=== PATIENT | female | born 1955 | race African-American/Black ===

== ENCOUNTER 2018-12-12 10:12 | Inpatient (IN) | payer OTHER ==
[2018-12-12 10:55] VITALS: BMI 25.6
--- NOTE | 2018-12-12 12:17 | HP ---
CIWA Score - Admission Criteria [facility] Guidelines: Admission for Medically Managed Detox: Requires at least one of the followin. CIWA greater than 12 2. Seizures within the past 24 hours 3. Delirium tremens within the past 24 hours 4. Hallucinations within the past 24 hours 5. Acute intervention needed for co occurring medical disorder 6. Acute intervention needed for co occurring psychiatric disorder 7. Severe withdrawal that cannot be handled at a lower level of care (continued vomiting, continued diarrhea, abnormal vital signs) requiring intravenous medication and/or fluids 8. Admission ROS [facility] - HPI Chief Complaint: I am here for rehab from cocaine,marijuana and alcohol Allergies/Adverse Reactions: Allergies Allergy/AdvReac Type Severity Reaction Status Date / Time No Known Allergies Allergy Verified 12/12/18 10:42 History of Present Illness: this 63 years old female with alcohol,cocaine and marijuana dependence seeking help in rehab,last rehab 15 years ago in [place], history of ovarian cancer s/p surgery and radiation therapy in 2018 [facility] weight loss in remission pain in left lower molar arthritis both knee no seizure,no syncope history of depression nicotine dependence 2 cigarette/nicotine patch 7 ngs/day plan for outpatient program NA meeting after detox history of hypertension,hypercholesterolemia,asthma history of type 2 dm on diet control Exam Limitations: No Limitations - Ebola screening Have you traveled outside of the country in the last 21 days: No (N) Have you had contact with anyone from an Ebola affected area: No Do you have a fever: No - Review of Systems Constitutional: No Symptoms Reported EENT: reports: No Symptoms Reported, Other (pain in tooth left loer) Respiratory: reports: Other (asthma) Cardiac: reports: No Symptoms Reported GI: reports: No Symptoms Reported : reports: Frequency Musculoskeletal: reports: No Symptoms Reported Integumentary: reports: No Symptoms Reported Neuro: reports: No Symptoms reported Endocrine: reports: Other (type 2 dm) Hematology: reports: Other (anemia) Psychiatric: reports: No Sypmtoms Reported, Judgement Intact, Mood/Affect Appropiate, Orientated x3 Other Systems: Reviewed and Negative (history of ovarian cancer s/p surgery and radiation therapy) Patient History - Patient Medical History Hx Anemia: Yes (on iron) Hx Asthma: Yes (on albuterol inhaler) Hx Chronic Obstructive Pulmonary Disease (COPD): No Hx Cancer: Yes (ovarian cancer s/p surgery and radiation therapy) Hx Cardiac Disorders: No Hx Congestive Heart Failure: No Hx Hypertension: Yes (on med) Hx Hypercholesterolemia: Yes (on med) Hx Pacemaker: No HX Cerebrovascular Accident: No Hx Seizures: No Hx Dementia: No Hx Diabetes: Yes (type 2 on diet control) Hx Gastrointestinal Disorders: No (constipation) Hx Liver Disease: No Hx Genitourinary Disorders: No Hx Sexually Transmitted Disorders: No Hx Renal Disease (ESRD): No Hx Thyroid Disease: No Hx Human Immunodeficiency Virus (HIV): No (last 05/10 negative) Hx Hepatitis C: No Hx Depression: Yes (insomnia) Hx Suicide Attempt: No Hx Bipolar Disorder: No Hx Schizophrenia: No Other Medical History: no suicidal,no homicidal - Patient Surgical History Past Surgical History: Yes Other Surgical History: surgery for ovarian cance in 2018 - PPD History Previous Implant?: Yes Documented Results: Negative w/o proof Implanted On Prior R Admission?: No PPD to be Administered?: Yes - Reproductive History Patient is a Female of Child Bearing Age (11 -55 yrs old): No Patient : No - Smoking Cessation Smoking history: Current every day smoker Have you smoked in the past 12 months: Yes Aproximately how many cigarettes per day: 3 Cigars Per Day: 0 Hx Chewing Tobacco Use: No Initiated information on smoking cessation: Yes 'Breaking Loose' booklet given: 12/12/18 - Substance & Tx. History Hx Alcohol Use: Yes Hx Substance Use: Yes Substance Use Type: Alcohol, Cocaine, Marijuana Hx Substance Use Treatment: Yes (rehab 15 years ago in [place]) - Substances abused Crack Substance route: Smoking Frequency: 3-6 times per week Amount used: $60 Age of first use: 38 Date of last use: 12/11/18 Marijuana/Hashish Substance route: Smoking Frequency: 3-6 times per week Amount used: 10$ Age of first use: 16 Date of last use: 12/10/18 Alcohol Substance route: Oral Frequency: 1-2 times per week Amount used: 1/2 pint of bacardi Age of first use: 24 Date of last use: 12/09/18 Family Disease History - Family Disease History Family Disease History: Diabetes: Father (alcohol and cocaine), Other: Father Admission Physical Exam [facility] - Vital Signs Vital Signs: Vital Signs - 24 hr 12/12/18 12/12/18 10:49 11:44 Temperature 96.7 F L 96.7 F L Pulse Rate 69 69 Respiratory 18 18 Rate Blood Pressure 142/92 142/92 - Physical General Appearance: Yes: Within Normal Limits HEENTM: Yes: Normal ENT Inspection, Normocephalic, Normal Voice, MARK, Pharynx Normal, Other (pain in left lower molar) Respiratory: Yes: Lungs Clear, Normal Breath Sounds, No Respiratory Distress Neck: Yes: Within Normal Limits, Supple, Trachea in good position, Other (rash of right side of neck) Breast: Yes: Breast Exam Deferred Cardiology: Yes: Within Normal Limits, Regular Rhythm, Regular Rate, S1, S2 Abdominal: Yes: Within Normal Limits, Normal Bowel Sounds, Non Tender, Soft, Surgical Scar Genitourinary: Yes: Within Normal Limits Back: Yes: Within Normal Limits Musculoskeletal: Yes: Within Normal Limits, Other (scar left leg) Extremities: Yes: Within Normal Limits Neurological: Yes: research dietitian II-XII NML intact, Fully Oriented, Alert, Motor Strength 5/5 Integumentary: Yes: Within Normal Limits Lymphatic: Yes: Within Normal Limits - Diagnostic (1) Alcohol dependence Current Visit: Yes Status: Chronic (2) Cocaine dependence Current Visit: Yes Status: Chronic (3) Cannabis dependence Current Visit: Yes Status: Chronic (4) History of ovarian cancer Current Visit: Yes Status: Acute (5) Anemia Current Visit: Yes Status: Acute (6) Insomnia Current Visit: Yes Status: Chronic (7) Anxiety and depression Current Visit: Yes Status: Acute (8) Weight loss Current Visit: Yes Status: Acute (9) Asthma Current Visit: Yes Status: Acute (10) Hypertension Current Visit: Yes Status: Acute (11) Hypercholesterolemia Current Visit: Yes Status: Acute (12) DM2 (diabetes mellitus, type 2) Current Visit: Yes Status: Acute Cleared for Admission [facility] - Detox or Rehab Claeared for Rehab Admission: Yes Breathalyzer - Breathalyzer Breathalyzer: 0 Urine Drug Screen - Test Device Lot number: [id number] Expiration date: 09/19/20 - Control Is test valid?: Yes - Results Drug screen NEGATIVE: No Urine drug screen results: THC-Marijuana, BARI-Cocaine Inpatient Rehab Admission - Rehab Decision to Admit Inpatient rehab admission?: Yes - Initial Determination Are CD services needed?: Yes Free of communicable disease: Yes Not in need of hospitalization: Yes - Rehab Admission Criteria Previous failed treatment: Yes Poor recovery environment: Yes Comorbidities: Yes Lacks judgement: No Patient is meeting Inpatient Rehab admission criteria:: Yes
[2018-12-12] MEDS ORDERED: P-EPHED 60MG/TRIPROLIDI 2.5MG TABLET PO PRN (12:42)
[2018-12-12] MEDS ORDERED: guaiFENesin 200 MG/10 ML 10 ML UNIT-DOSE CUPS PO PRN (12:42)
[2018-12-12] MEDS ORDERED: ACETAMINOPHEN 325 MG TABLET (FP) PO PRN (12:42)
[2018-12-12] MEDS ORDERED: MENTHOL/PHENOL 1 EACH UD MM PRN (12:42)
[2018-12-12] MEDS ORDERED: LOPERAMIDE HCL 2 MG CAPSULE PO PRN (12:42)
[2018-12-12] MEDS ORDERED: MAG HYDROX/AL HYDROX/SIMETH 30 ML UNIT-DOSE CUP PO PRN (12:42)
[2018-12-12] MEDS ORDERED: MAGNESIUM CITRATE 300 ML BOTTLE PO PRN (12:42)
[2018-12-12] MEDS ORDERED: MAGNESIUM HYDROX 2400MG/30ML ORAL SUSPENSION 30 ML CUP PO PRN (12:42)
[2018-12-12] MEDS ORDERED: ALBUTEROL SO4 8 GM HFA INHALER IH PRN (12:45)
[2018-12-12] MEDS: IBUPROFEN 400 MG TABLET (FP) PO PRN ×2 (14:14→19:24)
[2018-12-12] MEDS: GABAPENTIN 300 MG CAPSULE (FP) PO SCH ×2 (14:14→21:19)
[2018-12-12] MEDS: NICOTINE 7 MG/24 HOURS TOPICAL PATCH TD SCH (14:14)
[2018-12-12 14:50] LABS: HEMATOCRIT 34.7 % (32.4-45.2); HEMOGLOBIN 11.4 GM/dL (10.7-15.3); MCHC 32.8 g/dl (32.0-36.0); MEAN CELL VOLUME 88.2 fl (80-96); MEAN PLT VOLUME 9.4 fl (7.5-11.1); PLATELET COUNT 243 K/MM3 (134-434); RBC 3.93 M/mm3 (3.60-5.2); RDW 14.4 % (11.6-15.6); WHITE BLOOD COUNT 5.4 K/mm3 (4.0-10.0)
[2018-12-12 14:59] LABS: ALBUMIN 4.4 g/dl (3.4-5.0); BILIRUBIN,TOTAL 1.6 mg/dL (0.2-1); BLOOD UREA NITROGEN 6.7 mg/dL (7-18); CALCIUM 9.4 mg/dL (8.5-10.1); CREATININE 0.9 mg/dL (0.55-1.3); TOT PROT 7.8 g/dl (6.4-8.2)
--- NOTE | 2018-12-12 16:49 | CONSULT ---
[facility] Psychiatric Consult - Data Date of interview: 12/12/18 Admission source: [facility] Identifying data: First visit to [facility] and direct admission to [address] for this 63 y/o AA female self-referred for rehabilitative care to address substance use disorder (alcohol, cannabis, cocaine/crack, nicotine) co- morbid with MDD. Patient is , a mother of four, domiciled (lives with spouse), unemployed, disabled and supported on [facility] benefits. Substance Abuse History: Confirmed by patient. Discussed in session. Details in current [facility] report as follows : Smoking history: Current every day smoker. Have you smoked in the past 12 months: Yes. Aproximately how many cigarettes per day: 3. Cigars Per Day: 0. Hx Chewing Tobacco Use: No. Initiated information on smoking cessation: Yes. 'Breaking Loose' booklet given: . - Substance & Tx. History. Hx Alcohol Use: Yes. Hx Substance Use: Yes. Substance Use Type: Alcohol, Cocaine, Marijuana. Hx Substance Use Treatment: Yes (rehab 15 years ago in [place]). - Substances abused. Crack. Substance route: Smoking. Frequency: 3-6 times per week. Amount used: $60. Age of first use: 38. Date of last use: 12/11/18. Marijuana/Hashish. Substance route: Smoking. Frequency: 3-6 times per week. Amount used: 10$. Age of first use: 16. Date of last use: 12/10/18. Alcohol. Substance route : Oral. Frequency: 1-2 times per week. Amount used: 1/2 pint of bacardi. Age of first use: 24. Date of last use: 12/09/18 Medical History: Medical profile is remarkable for bronchial asthma, anemia, hypertension, dyslipidemia, past history of diabetes mellitus + ovarian cancer ( interventions : surgery and radiation therapy in 2018). Psychiatric History: Patient endorses a history of one psychiatric hospitalization at [facility] ([place]). Diagnosed with MDD. Ms Millan is currently managed with abilify 10 mg/day (stopped taking fluoxetine). She sees a psychiatrist, Dr Gold, at [facility] in the [place]. Patient reports a remote history of suicide attempt via overdose with medications (years ago). Physical/Sexual Abuse/Trauma History: Patient denies. Additional Comment: Urine drug screen results: THC-Marijuana, BARI-Cocaine. Noted. Mental Status Exam - Mental Status Exam Alert and Oriented to: Time, Place, Person Cognitive Function: Good Patient Appearance: Well Groomed Mood: Hopeful Affect: Appropriate, Normal Range Patient Behavior: Appropriate (pleasant), Cooperative Speech Pattern: Clear, Appropriate Voice Loudness: Normal Thought Process: Intact, Goal Oriented Thought Disorder: Not Present Hallucinations: Denies Suicidal Ideation: Denies Homicidal Ideation: Denies Insight/Judgement: Good Sleep: Poorly, Difficulty falling asleep Appetite: Poor, Weight loss Gait/Station: Normal Psychiatric Findings - Problem List ([place] 1, 2,3) (1) Alcohol dependence Current Visit: Yes Status: Chronic (2) Cannabis dependence Current Visit: Yes Status: Chronic (3) Cocaine dependence Current Visit: Yes Status: Chronic (4) History of depression Current Visit: Yes Status: Chronic (5) Insomnia Current Visit: Yes Status: Chronic - Initial Treatment Plan Initial Treatment Plan: Psychoeducation. Sleep hygiene. Support. Groups. Motivational counseling. Abilify 10 mg po daily. Ordered. Side effects/benefits discussed with the patient. Insomnia is addressed with melatonin at bedtime. Verbal consent given to MD. Betts.
[2018-12-12] MEDS: HYDROCORTISONE 1% TOPICAL CREAM 30 GM TUBE TP SCH (21:19)
[2018-12-12] MEDS: ATORVASTATIN CA 40 MG TABLET (FP) PO SCH (21:19)
[2018-12-12] MEDS: THIAMINE HCL 100 MG TABLET (FP) PO SCH (21:20)
[2018-12-12] MEDS: hydrOXYzine PAMOATE 25 MG CAPSULE (FP) PO PRN (21:22)
[2018-12-12] MEDS: MELATONIN 5 MG TABLETS PO PRN (21:22)
[2018-12-12] MEDS: BUDESONIDE/FORMETEROL FUMARATE 160/4.5 mcg INHALER IH SCH (22:13)
[2018-12-13] MEDS: GABAPENTIN 300 MG CAPSULE (FP) PO SCH ×3 (06:24→21:04)
[2018-12-13] MEDS: IBUPROFEN 400 MG TABLET (FP) PO PRN ×2 (06:25→17:05)
[2018-12-13] MEDS: FERROUS SO4 325 MG TABLET (FP) PO SCH (07:04)
[2018-12-13] MEDS ORDERED: PT OWN MED DRAWER 7, Y5N ONE ×2 (08:27→21:03)
[2018-12-13] MEDS: HYDROCORTISONE 1% TOPICAL CREAM 30 GM TUBE TP SCH ×2 (10:12→21:04)
[2018-12-13] MEDS: ARIPiprazole 10 MG TABLET PO SCH (10:12)
[2018-12-13] MEDS: NICOTINE 7 MG/24 HOURS TOPICAL PATCH TD SCH (10:12)
[2018-12-13] MEDS: PRENATAL VITAMINS W/ FOLIC ACID TABLET (FP) PO SCH (10:13)
[2018-12-13] MEDS: CHOLECALCIFEROL (VIT D3) 1,000 UNIT (25 MCG) TABLET PO SCH (10:13)
[2018-12-13] MEDS: BUDESONIDE/FORMETEROL FUMARATE 160/4.5 mcg INHALER IH SCH ×2 (10:14→21:03)
[2018-12-13 18:59] LABS: EPI CELLS 20.7 /HPF (0-5/HPF); HYALINE CASTS 48 /lpf (0-8); PH,URINE 5.5 (5.0-8.0); URINE APPEARANCE TURBID; URINE BILIRUBIN NEGATIVE (NEGATIVE); URINE COLOR YELLOW; URINE GLUCOSE (UA) NEGATIVE (NEGATIVE); URINE KETONE NEGATIVE (NEGATIVE); URINE LEUK ESTERASE 2+ (NEGATIVE); URINE NITRITE POSITIVE (NEGATIVE); URINE PROTEIN TRACE (NEGATIVE); URINE RBC 5 /hpf (0-4); URINE UROBILINOGEN 0.2 mg/dL (0.2-1.0); URINE WBC 71 /hpf (0-5)
[2018-12-13] MEDS: THIAMINE HCL 100 MG TABLET (FP) PO SCH (21:03)
[2018-12-13] MEDS: ATORVASTATIN CA 40 MG TABLET (FP) PO SCH (21:04)
[2018-12-13] MEDS: MELATONIN 5 MG TABLETS PO PRN (21:04)
[2018-12-13] MEDS: hydrOXYzine PAMOATE 25 MG CAPSULE (FP) PO PRN (21:05)
[2018-12-14] MEDS: GABAPENTIN 300 MG CAPSULE (FP) PO SCH ×3 (06:43→21:43)
[2018-12-14] MEDS: IBUPROFEN 400 MG TABLET (FP) PO PRN (06:44)
[2018-12-14] MEDS: FERROUS SO4 325 MG TABLET (FP) PO SCH (07:02)
[2018-12-14] MEDS ORDERED: PT OWN MED DRAWER 7, Y5N ONE ×2 (08:46→21:45)
[2018-12-14] MEDS: BUDESONIDE/FORMETEROL FUMARATE 160/4.5 mcg INHALER IH SCH ×2 (10:04→21:44)
[2018-12-14] MEDS: HYDROCORTISONE 1% TOPICAL CREAM 30 GM TUBE TP SCH ×2 (10:04→21:43)
[2018-12-14] MEDS: NICOTINE 7 MG/24 HOURS TOPICAL PATCH TD SCH (10:04)
[2018-12-14] MEDS: CHOLECALCIFEROL (VIT D3) 1,000 UNIT (25 MCG) TABLET PO SCH (10:04)
[2018-12-14] MEDS: PRENATAL VITAMINS W/ FOLIC ACID TABLET (FP) PO SCH (10:04)
[2018-12-14] MEDS: ARIPiprazole 10 MG TABLET PO SCH (10:06)
[2018-12-14] MEDS: ATORVASTATIN CA 40 MG TABLET (FP) PO SCH (21:43)
[2018-12-14] MEDS: THIAMINE HCL 100 MG TABLET (FP) PO SCH (21:43)
[2018-12-14] MEDS: MELATONIN 5 MG TABLETS PO PRN (21:46)
[2018-12-14] MEDS: hydrOXYzine PAMOATE 25 MG CAPSULE (FP) PO PRN (21:47)
[2018-12-15] MEDS: GABAPENTIN 300 MG CAPSULE (FP) PO SCH ×3 (06:52→22:03)
[2018-12-15] MEDS: IBUPROFEN 400 MG TABLET (FP) PO PRN (06:52)
[2018-12-15] MEDS: FERROUS SO4 325 MG TABLET (FP) PO SCH (07:29)
[2018-12-15] MEDS ORDERED: IBUPROFEN 600 MG TABLET (FP) PO PRN ×2 (08:14→08:16)
[2018-12-15] MEDS ORDERED: PT OWN MED DRAWER 7, Y5N ONE ×2 (08:43→23:09)
[2018-12-15] MEDS: NICOTINE 7 MG/24 HOURS TOPICAL PATCH TD SCH (10:55)
[2018-12-15] MEDS: BUDESONIDE/FORMETEROL FUMARATE 160/4.5 mcg INHALER IH SCH ×2 (10:55→22:01)
[2018-12-15] MEDS: ARIPiprazole 10 MG TABLET PO SCH (10:55)
[2018-12-15] MEDS: HYDROCORTISONE 1% TOPICAL CREAM 30 GM TUBE TP SCH ×2 (10:55→22:00)
[2018-12-15] MEDS: CHOLECALCIFEROL (VIT D3) 1,000 UNIT (25 MCG) TABLET PO SCH (10:55)
[2018-12-15] MEDS: PRENATAL VITAMINS W/ FOLIC ACID TABLET (FP) PO SCH (10:55)
--- NOTE | 2018-12-15 13:04 | EKG ---
Test Reason : Blood Pressure : / mmHG Vent. Rate : 079 BPM Atrial Rate : 079 BPM P-R Int : 152 ms QRS Dur : 086 ms QT Int : 382 ms P-R-T Axes : 073 065 045 degrees QTc Int : 438 ms NORMAL SINUS RHYTHM NORMAL ECG NO PREVIOUS ECGS AVAILABLE Confirmed by DAHIANA LIN MD ([id number]) on 12/15/2018 1:04:05 PM Referred By: Confirmed By:DAHIANA LIN MD
[2018-12-15] MEDS: MELATONIN 5 MG TABLETS PO PRN (22:00)
[2018-12-15] MEDS: THIAMINE HCL 100 MG TABLET (FP) PO SCH (22:00)
[2018-12-15] MEDS: hydrOXYzine PAMOATE 25 MG CAPSULE (FP) PO PRN (22:01)
[2018-12-15] MEDS: ATORVASTATIN CA 40 MG TABLET (FP) PO SCH (22:01)
[2018-12-15] MEDS: DOCUSATE SODIUM 100 MG CAPSULE (FP) PO SCH (22:02)
[2018-12-16] MEDS: GABAPENTIN 300 MG CAPSULE (FP) PO SCH ×3 (06:57→21:50)
--- NOTE | 2018-12-16 07:30 | PN ---
[facility] Progress Note Note: Patient reports this morning that at 04.00am, she was sitting on the toilet and when she got up, her knee felt weak and she fell to her right leg. Fall was not witnessed. Patient was seen and evaluated in bed. No injury or bruises noted or reported. Patient denies Loss of consciousness, dizziness or headache. She has a history of right knee Osteoarthritis and she is complaining of right knee pain rated at 2/10 and tolerable at this time. Fall protocol # 1 initiated. Patient refused to go to the hospital. Refusal of treatment form signed by patient Vital Signs Temperature 97.6 F 12/16/18 07:21 Pulse Rate 76 12/16/18 07:21 Respiratory Rate 18 12/16/18 07:21 Blood Pressure 140/88 12/16/18 07:21 O2 Sat by Pulse Oximetry (%) PHYSICAL ASSESSMENT: HEAD: Normocephalic. No palpable deformities noted, EYES: PERRLA. Extraocular movements intact. EARS: [place]. No Olson's sign NOSE/FACE: No bruises or injury noted or reported Mouth: Teeth and mandible intact NECK: No midline point tenderness. Trachea midline. Full range of motion of the neck without pain CHEST/HEART: No Surface trauma. Regular rate and rhythm. No murmur, rub or gallop BACK: No contusions, echymosis or abrasions noted EXTREMITIES: No surface trauma. Full range of motion without limitation except right lower extremities. Patient is complaining of right knee pain. Peripheral pulses intact or pain ACTION: Monitor patient Ibuprofen as needed Ice pack
[2018-12-16] MEDS: FERROUS SO4 325 MG TABLET (FP) PO SCH (08:45)
[2018-12-16] MEDS: ARIPiprazole 10 MG TABLET PO SCH (11:00)
[2018-12-16] MEDS: PRENATAL VITAMINS W/ FOLIC ACID TABLET (FP) PO SCH (11:00)
[2018-12-16] MEDS: HYDROCORTISONE 1% TOPICAL CREAM 30 GM TUBE TP SCH ×2 (11:00→21:49)
[2018-12-16] MEDS: NICOTINE 7 MG/24 HOURS TOPICAL PATCH TD SCH (11:00)
[2018-12-16] MEDS: CHOLECALCIFEROL (VIT D3) 1,000 UNIT (25 MCG) TABLET PO SCH (11:00)
[2018-12-16] MEDS: BUDESONIDE/FORMETEROL FUMARATE 160/4.5 mcg INHALER IH SCH ×2 (11:00→21:50)
--- NOTE | 2018-12-16 12:16 | PN ---
[facility] Progress Note Note: Psychiatric nurse practitioner note: Psychiatric re-consultation ordered to address insomnia. 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 Psychiatric consultation deferred.
[2018-12-16 17:40] VITALS: TEMP 98
[2018-12-16 21:34] VITALS: BP 148/92; PULSE 93
[2018-12-16] MEDS: DOCUSATE SODIUM 100 MG CAPSULE (FP) PO SCH (21:49)
[2018-12-16] MEDS: THIAMINE HCL 100 MG TABLET (FP) PO SCH (21:50)
[2018-12-16] MEDS: ATORVASTATIN CA 40 MG TABLET (FP) PO SCH (21:50)
--- NOTE | 2018-12-16 22:01 | DS ---
[facility] Rehab Discharge Summary - [facility] Rehab Discharge Summary Admission Date: 12/12/18 Discharge Date: 12/16/18 - History Pertinent Past History: Pt was admitted on 12/12 for rehab from [facility]. Pt had an unwitnessed fall yesterday near the toilet. Pt was sent to ER for evaluation. Pt returned this afternoon and walked out of the unit a few hours later. I did not see the patient. This was pt's history on admission 12/12: this 63 years old female with alcohol,cocaine and marijuana dependence seeking help in rehab,last rehab 15 years ago in [place], history of ovarian cancer s/p surgery and radiation therapy in [facility] weight loss in remission pain in left lower molar arthritis both knee no seizure,no syncope history of depression nicotine dependence 2 cigarette/nicotine patch 7 ngs/day plan for outpatient program NA meeting after detox history of hypertension,hypercholesterolemia,asthma history of type 2 dm on diet control - Discharge Physical Exam Vital Signs: Vital Signs Temperature 98 F 12/16/18 19:00 Pulse Rate 93 H 12/16/18 19:00 Respiratory Rate 18 12/16/18 19:00 Blood Pressure 148/92 12/16/18 19:00 O2 Sat by Pulse Oximetry (%) - Medication Discharge Medications: Ambulatory Orders Albuterol Sulfate Inhaler - [Ventolin Hfa Inhaler -] 2 inh PO Q4H PRN 12/12/18 Aripiprazole [Abilify -] 10 mg PO DAILY 12/12/18 Atorvastatin Ca [Lipitor] 40 mg PO HS 12/12/18 Budesonide/Formeterol Fumarate [SYMBICORT 160/4.5mcg -] 2 inh PO DAILY 12/12/18 Cholecalciferol (Vitamin D3) [Vitamin D3 -] 1,000 unit PO DAILY 12/12/18 Ferrous Sulfate 325 mg PO DAILY 12/12/18 Gabapentin 300 mg PO TID 12/12/18 Ibuprofen 400 mg PO Q8H PRN 12/12/18 - Discharge Instructions Diet, activity, other medical instructions: Diet: Activity: Other medical instructions: - Follow-up Referral Minutes to complete discharge: 30 - AMA Did Patient Leave Against Medical Advice: Yes
== END 2018-12-16 22:09 | disposition left against medical advice (07) | DRG 770 ==
LOC: YASAS 10:12 → Y3E 12:27
PROVIDERS: ADMIT Neuromusculoskeletal Medicine & OMM; ATTEND Neuromusculoskeletal Medicine & OMM
PROC: HZ42ZZZ Group Counseling for Substance Abuse Treatment, Cognitive-Behavioral (ICD-10-PCS; principal; 2018-12-12)
DX: F10.20 Alcohol dependence, uncomplicated (principal); F14.20 Cocaine dependence, uncomplicated; F12.20 Cannabis dependence, uncomplicated; F41.9 Anxiety disorder, unspecified; F32.9 Major depressive disorder, single episode, unspecified; I10 Essential (primary) hypertension; E11.9 Type 2 diabetes mellitus without complications; E78.00 Pure hypercholesterolemia, unspecified; D64.9 Anemia, unspecified; J45.909 Unspecified asthma, uncomplicated; R63.4 Abnormal weight loss; Z68.25 Body mass index [BMI] 25.0-25.9, adult; Z85.43 Personal history of malignant neoplasm of ovary
CPT/HCPCS: 36415; 80053; 81003; 82962; 85027; 86480; 86593; 87389; 93005; 93010

== ENCOUNTER 2018-12-16 09:38 | Emergency (ER) | payer OTHER ==
[2018-12-16 09:49] VITALS: BMI 26.9
--- NOTE | 2018-12-16 10:14 | PDOC ---
*Physical Exam - Vital Signs Last Vital Signs Temp Pulse Resp BP Pulse Ox 97.6 F 84 18 131/87 98 12/16/18 09:46 12/16/18 09:46 12/16/18 09:46 12/16/18 09:46 12/16/18 09:46 Medical Decision Making - Medical Decision Making 12/16/18 10:39 Patient seen and examined as pre-attending w/Dr. Hatch (PGY-2) 63 y/o female with a PMHx of Uterine CA (s/p radiation + hysterectomy), Cocaine abuse, HTN, HLD and OA presents from [facility] following a fall. States she was getting up from the toilet when her L knee gave way and she fell landing on her side. Denies any associated head trauma/LOC. Ambulatory with walker after the fall. States she is planning for B/L TKA 2/2 to her osteoarthritis and currently takes Motrin daily for the pain. Currently c/o RLE pain. Last cocaine use last (12/09) On PE: RLE Extensor mechanism intact, with R patellar TTP, 2+ DP pulse. Will image and likely dispo is d/c back to [facility]. *DC/Admit/Observation/Transfer Diagnosis at time of Disposition: Knee pain - Discharge Dispostion Disposition: HOME Condition at time of disposition: Stable - Referrals - Patient Instructions Printed Discharge Instructions: DI for Knee Pain Additional Instructions: You were seen in the ED for complaints of R knee pain In the ED you were evaluated with labwork and imaging. Your results were unremarkable There does not appear to be an acute need for immediate hospitalization. You are advised to follow up with your Primary Care Physician within 1 week. Take over the counter Tylenol and Motrin for pain Return to the ED immediately if you experience worsening pain, numbness or tingling in the leg or worsening ability walking. - Post Discharge Activity
--- NOTE | 2018-12-16 10:17 | PDOC ---
History of Present Illness - General Chief Complaint: Injury Stated Complaint: FALL Time Seen by Provider: 12/16/18 09:57 - History of Present Illness Initial Comments: 12/16/18 10:19 63 year old woman coming from [facility] detox from crack cocaine, HTN, HLD, DM, prior uterine CA s/p hysterectomy, radiation and R knee osteoarthritis, walks with a cane who presents with fall on extended hands with R leg folding beneath her that occurred after getting up from the toilet. She denies hitting her head or loc. She denies trauma to the abdomen or chest. She was able to get up after the fall but had significant pain behind the R popliteal fossa and R posterior calf. She denies any pain at the hip. She has no other complaints She takes Motrin 800 every morning for her osteoarthritis and reports taking it this AM. ROS GENERAL/CONSTITUTIONAL: No fever or chills. No weakness. HEAD, EYES, EARS, NOSE AND THROAT: No change in vision. No ear pain or discharge. No sore throat. CARDIOVASCULAR: No chest pain or shortness of breath RESPIRATORY: No cough, wheezing, or hemoptysis. GASTROINTESTINAL: No nausea, vomiting, diarrhea or constipation. GENITOURINARY: No dysuria, frequency, or change in urination. MUSCULOSKELETAL: See HPI SKIN: No rash PE GENERAL: Awake, alert, and fully oriented, in no acute distress HEAD: No signs of trauma, normocephalic, atraumatic EYES: EOMI, sclera anicteric, conjunctiva clear ENT: oropharynx clear without exudates. Moist mucosa NECK: Normal ROM, supple LUNGS: No distress, speaks full sentences, clear to auscultation bilaterally HEART: Regular rate and rhythm, normal S1 and S2, no murmurs, rubs or gallops, peripheral pulses normal and equal bilaterally. ABDOMEN: Soft, nontender, normoactive bowel sounds. No guarding, no rebound. No masses EXTREMITIES : Normal inspection, Normal range of motion, no edema. No clubbing or cyanosis. good popliteal pulses NEUROLOGICAL: Cranial nerves II through XII grossly intact. Normal speech, no focal sensorimotor deficits SKIN: Warm, Dry, normal turgor, no rashes or lesions noted MDM 63 year old woman coming from [facility] detox from crack cocaine, HTN, HLD, DM, prior uterine CA s/p hysterectomy, radiation and R knee osteoarthritis, walks with a cane who presents with fall on extended hands with R leg folding beneath her that occurred after getting up from the toilet. DDX including but not limited to: fx vs sprain W/U: - XR TX: - tylenol ED Course: Dot Hatch, PGY2 Emergency Medicine 12/16/18 13:10 Past History - Past Medical History Allergies/Adverse Reactions: Allergies Allergy/AdvReac Type Severity Reaction Status Date / Time No Known Allergies Allergy Verified 12/16/18 09:50 Home Medications: Ambulatory Orders Albuterol Sulfate Inhaler - [Ventolin Hfa Inhaler -] 2 inh PO Q4H PRN 12/12/18 Aripiprazole [Abilify -] 10 mg PO DAILY 12/12/18 Atorvastatin Ca [Lipitor] 40 mg PO HS 12/12/18 Budesonide/Formeterol Fumarate [SYMBICORT 160/4.5mcg -] 2 inh PO DAILY 12/12/18 Cholecalciferol (Vitamin D3) [Vitamin D3 -] 1,000 unit PO DAILY 12/12/18 Ferrous Sulfate 325 mg PO DAILY 12/12/18 Gabapentin 300 mg PO TID 12/12/18 Ibuprofen 400 mg PO Q8H PRN 12/12/18 Anemia: Yes (on iron) Asthma: Yes (on albuterol inhaler) Cancer: Yes (ovarian cancer s/p surgery and radiation therapy) Cardiac Disorders: No CVA: No COPD: No CHF: No Dementia: No Diabetes: Yes (type 2 on diet control) GI Disorders: No (constipation) Disorders: No HTN: Yes (on med) Hypercholesterolemia: Yes (on med) Kidney Stones: No Liver Disease: No Seizures: No Thyroid Disease: No - Reproductive History PID: No - Suicide/Smoking/Psychosocial Hx Smoking History: Current every day smoker Have you smoked in the past 12 months: Yes Number of Cigarettes Smoked Daily: 2 Cigars Per Day: 0 Information on smoking cessation initiated: No 'Breaking Loose' booklet given: 12/12/18 Hx Alcohol Use: Yes Drug/Substance Use Hx: No Substance Use Type: Alcohol, Cocaine, Marijuana Hx Substance Use Treatment: Yes (rehab 15 years ago in [place]) *Physical Exam - Vital Signs Last Vital Signs Temp Pulse Resp BP Pulse Ox 97.6 F 84 18 131/87 98 12/16/18 09:46 12/16/18 09:46 12/16/18 09:46 12/16/18 09:46 12/16/18 09:46 *DC/Admit/Observation/Transfer Diagnosis at time of Disposition: Knee pain - Discharge Dispostion Disposition: HOME Condition at time of disposition: Stable Decision to Admit order: No - Referrals - Patient Instructions Printed Discharge Instructions: DI for Knee Pain Additional Instructions: You were seen in the ED for complaints of R knee pain In the ED you were evaluated with labwork and imaging. Your results were unremarkable There does not appear to be an acute need for immediate hospitalization. You are advised to follow up with your Primary Care Physician within 1 week. Take over the counter Tylenol and Motrin for pain Return to the ED immediately if you experience worsening pain, numbness or tingling in the leg or worsening ability walking. - Post Discharge Activity
[2018-12-16] MEDS ORDERED: ACETAMINOPHEN 325 MG TABLET (FP) PO ONE (10:18)
[2018-12-16] MEDS ORDERED: KETOROLAC TROMETHAMINE 10 MG TABLET PO ONE (10:30)
--- NOTE | 2018-12-16 10:55 | PDOC ---
Attending Attestation - Resident Resident Name: Dot Hatch - ED Attending Attestation I have performed the following: I have examined & evaluated the patient, The case was reviewed & discussed with the resident, I agree w/resident's findings & plan, Exceptions are as noted - HPI HPI: 12/16/18 10:47 Ms Millan is a 63 yo F presenting to the ER with a complaint of Right knee pain She is currently at the [facility] program, has a h/o HTN, HLD, DM, prior uterine CA s/p hysterectomy and R knee osteoarthritis. She walks with a cane and is currently being assessed for knee replacement at [facility]. Pt states she takes iron and knows it causes constipation She was given stool softener and last night spent the entire night in the bathroom. She apparently fell onto her extended hands with R leg folding beneath her after getting up from the toilet. No head trauma, no LOC She was unable to get herself to standing position She denies any pain at the hip. She has no other complaints She takes Motrin 800 every morning for her osteoarthritis and reports taking it this AM. - Physicial Exam PE: 12/16/18 10:50 GENERAL: Awake, alert, and fully oriented, in no acute distress HEAD: No signs of trauma, normocephalic, atraumatic EYES: EOMI, sclera anicteric, conjunctiva clear ENT: oropharynx clear without exudates. Moist mucosa NECK: Normal ROM, supple LUNGS: No distress, speaks full sentences, clear to auscultation bilaterally HEART: Regular rate and rhythm, normal S1 and S2, no murmurs, rubs or gallops, peripheral pulses normal and equal bilaterally. ABDOMEN: Soft, nontender, normoactive bowel sounds. EXTREMITIES : Normal inspection, Normal range of motion, no edema. No deformities noted, no bruising noted, minimal swelling noted in the right knee, able to range right knee actively with no new limitation. Popliteal pulse palpable, foot warm, DP palpable NEUROLOGICAL: Cranial nerves II through XII grossly intact. Normal speech, no focal sensorimotor deficits SKIN: Warm, Dry, normal turgor, no rashes or lesions noted 12/17/18 07:32 - Medical Decision Making 12/16/18 10:51 63 year old F h/o osteoarthritis s/p fall with right knee injury No head trauma, no LOC Pt not taking blood thinners DDX including but not limited to: fx vs sprain unlikely to have ICH as pt had no head trauma Will do XR, analgesia, fletcher wrap Re assess 12/16/18 13:03 No fracture or dislocation seen Will return to [facility]
[2018-12-16] MEDS ORDERED: ACETAMINOPHEN 325 MG TABLET (FP) ONE (10:58)
[2018-12-16 16:41] VITALS: BP 128/74; PULSE 78; TEMP 98
== END 2018-12-16 16:41 | disposition home or self-care (01) ==
LOC: JER 09:38
DX: S89.81XA Other specified injuries of right lower leg, initial encounter (principal); M25.561 Pain in right knee; W18.11XA Fall from or off toilet without subsequent striking against object, initial encounter; Y93.89 Activity, other specified; Y92.231 Patient bathroom in hospital as the place of occurrence of the external cause; Y99.8 Other external cause status; I10 Essential (primary) hypertension; E11.9 Type 2 diabetes mellitus without complications; E78.5 Hyperlipidemia, unspecified; M17.11 Unilateral primary osteoarthritis, right knee; F14.20 Cocaine dependence, uncomplicated; Z85.43 Personal history of malignant neoplasm of ovary; Z99.89 Dependence on other enabling machines and devices
CPT/HCPCS: 73552-TC-RT-FY; 73560-TC-RT-FY; 73590-TC-RT-FY; 99281-25